=== PATIENT | female | born 1980 | race Caucasian/White ===

== ENCOUNTER → 2016-09-12 | Outpatient (CLI) | payer MEDICAID, OTHER ==
--- NOTE | 2016-09-12 14:16 | US ---
Ultrasound Right Breast History: Right breast lump, stopped breast-feeding one week ago, history of fibroadenoma removal Comparison: None Findings: On physical examination there is an easily palpable mobile firm nodule at the 5:30 radial, 5 cm from the nipple. Directed sonography of this area reveals only normal breast parenchyma. No cm d or cystic abnormality is identified. There is no sonographic architectural distortion or evidence f or sonographically detected microcalcification formation. Impression: Negative sonogram in a patient with an easily palpable lump who stopped breast feeding on e week ago. The palpable lump can be followed clinically. If it increases, repeat ultrasound could be performed along with mammography ( if it is at least a few months have passed after breast-feeding h as been discontinued). If the patient is uncomfortable with serial physical examination, the lesion c ould be evaluated by a surgeon. My suspicion is that it represents a small fibroadenoma that is isoec hoic to normal surrounding breast tissue. At this time the patient prefers serial physical examinatio n and is referred back to Dr. Luciano. for repeat serial physical examination. Results and rec ommendation were discussed in detail with the patient, who is in agreement with the plan. BI-RADS 1. Negative imaging.
== END ==
LOC: FIMAGING 13:31
PROVIDERS: ATTEND Midwife
DX: N63 Unspecified lump in breast (principal)

== ENCOUNTER → 2016-10-28 | Outpatient (CLI) | payer OTHER | LOC: FIMAGING 13:34 | PROVIDERS: ATTEND Obstetrics & Gynecology | DX: N63 Unspecified lump in breast (principal) | CPT/HCPCS: G0204 ==

== ENCOUNTER → 2017-07-10 | Outpatient (CLI) | payer OTHER | LOC: FIMAGING 12:12 | PROVIDERS: ATTEND Obstetrics & Gynecology | DX: Z12.39 Encounter for other screening for malignant neoplasm of breast (principal); R92.8 Other abnormal and inconclusive findings on diagnostic imaging of breast | CPT/HCPCS: G0206 ==

== ENCOUNTER → 2018-09-15 | Outpatient (CLI) | payer OTHER | LOC: GIMAGING 14:42 → EDSTATUS 15:50 | PROVIDERS: ATTEND Internal Medicine | DX: M25.551 Pain in right hip (principal); G89.29 Other chronic pain | CPT/HCPCS: 73502-PO ==

== ENCOUNTER → 2018-09-21 | Outpatient (CLI) | payer OTHER | LOC: FIMAGING 14:32 | PROVIDERS: ATTEND Internal Medicine | DX: R59.1 Generalized enlarged lymph nodes (principal); M25.551 Pain in right hip ==